=== PATIENT | female | born 1960 | race Caucasian/White ===

== ENCOUNTER 2021-11-01 10:04 | Emergency (ER) | payer OTHER, SELFPAY ==
[2021-11-01 10:05] VITALS: BP 169/78; PULSE 85; RESP 14; TEMP 36.2; O2SAT 98; BMI 28.8
[2021-11-01] MEDS: Ondansetron 4 MG/2 ML Vial IV (10:34)
[2021-11-01] MEDS: Ketorolac 30 MG/ML Syringe IV (10:34)
[2021-11-01] MEDS: Morphine 4 MG/ML Syringe IV (10:35)
[2021-11-01] MEDS: 0.9% Normal Saline 1,000 ML 250 ML IV (10:36)
[2021-11-01 10:46] LABS: Absolute Lymphocyte Count 2.47 X10^3/uL (0.83-4.51); Basophil# 0.05 X10^3/uL; Basophil% 0.5 % (0-1); Eosinophils% 1.1 % (0-5); Hematocrit 42.4 % (37-47); Hemoglobin 14.3 g/dL (12.0-15.0); Lymphocyte # 2.47 X10^3/ul (0.83-4.51); Lymphocyte % 26.8 % (19-41); Mean Corp Hgb Conc 33.7 g/dL (32-36); Mean Corpuscular Hgb 30.3 pg (27.0-32.0); Mean Corpuscular Volume 89.8 fL (81-99); Mean Platelet Vol. 9.4 fl (6.2-12.0); Monocyte# 0.58 X10^3/uL; Monocyte% 6.3 % (0-10); NRBC Flagged by Analyzer 0 % (0-5); Neutrophil # 5.97 X10^3/uL (2.7-7.7); Neutrophil % 64.9 % (47-70); Platelet Count 297 K/mm3 (150-450); RBC Distribution Width CV 12.5 % (11.6-14.6); RBC Distribution Width SD 41.4 fl (35.1-43.9); Red Blood Count 4.72 M/mm3 (4.2-5.4); White Blood Count 9.2 K/mm3 (4.4-11.0)
[2021-11-01 10:58] LABS: Anion Gap 12 (5-15); BUN 21 mg/dL (7-18); BUN/Creat Ratio 20.2 RATIO (10-20); Chloride 103 mmol/L (98-107); Creatinine, Serum 1.04 mg/dL (0.55-1.02); EST Glomerular Filtration Rate 57 mL/min (>60); Est Glom Filt Rate - Afr Amer 69 mL/min (>60); Estimated Creatinine Clearance 47.81 ml/min; Glucose 168 mg/dL (74-106); Potassium 3.5 mmol/L (3.5-5.1); Sodium Level 139 mmol/L (136-145)
[2021-11-01 12:08] LABS: Mucous, Urine 0 SEEN /hpf (<or=2+); Red Blood Cells-Urine 0 SEEN /hpf (0-5)
[2021-11-01 12:11] LABS: Color, Urine Yellow (Yellow); Glucose, Dipstick Normal (Normal); Ketone-Dipstick 15 mg/dl (Negative); Leukocyte Esterase-Dipstick 500 /ul (Negative); Nitrite-Dipstick Positive (Negative); Occult Blood-Urine 250 /ul (Negative); Protein-Dipstick 100 mg/dl (Negative); Urine Bilirubin Dipstick Negative (Negative); Urine Clarity Cloudy (Clear); Urine Urobilinogen 1 mg/dl (Normal)
[2021-11-01 12:12] LABS: Bacteria 4+ /hpf (None Seen); Squamous Epithelial Cells - UA 0-5 SEEN /hpf (5-10); White Blood Cells 10-25 SEEN /hpf (0-5)
[2021-11-01 12:18] VITALS: BP 133/74; PULSE 96; RESP 15; O2SAT 95
--- NOTE | 2021-11-01 12:41 | CT_ITS ---
STUDY: CT ABDOMEN AND PELVIS WITHOUT CONTRAST REASON FOR EXAM: Female, 61 years old. flank pain RADIATION DOSAGE (If Supplied By Facility): CTDIvol = ( 15.09 ) mGy, DLP = ( 745.35 ) mGycm TECHNIQUE: Transaxial images were obtained from the dome of the diaphragm to the symphysis pubis without oral contrast, and without intravenous contrast. Sagittal and coronal images were reconstructed. Individualized dose optimization techniques were used for this CT. COMPARISON: None. FINDINGS: The visualized lung bases are unremarkable. The visualized portions of the heart are within normal limits. There is decreased attenuation of the liver consistent with steatosis. Normal gallbladder and extrahepatic biliary system. Normal spleen. Normal pancreas. Normal bilateral adrenal glands. Slight right hydronephrosis with right perinephric stranding. No ureteral calculi. However, 5.4 mm calculus in the dependent portion of the urinary bladder and image 99 of series 2. Normal left kidney. Normal visualized stomach. Normal small intestine. Normal colon. The appendix is visualized and appears normal. There is diffuse atherosclerotic calcification of the abdominal aorta, without a demonstrated aneurysm. Normal inferior vena cava. Normal retroperitoneum. Normal urinary bladder. Normal abdominal wall. There are diffuse degenerative changes of the visualized lumbar spine. CT/Abdomen/Pelvis without Cont IMPRESSION: 5.4 mm urinary bladder calculus. Slight right hydronephrosis/perinephric stranding. No ureteral calculi. Electronically Signed: Beck Justice MD ([place]) at 13:09 EDT ,
[2021-11-01] MEDS: Ceftriaxone 1 GM/50 ML BAG IV (13:12)
--- NOTE | 2021-11-01 13:28 | EX.ED.DYSGE1 ---
HPI History of Present Illness Chief Complaint: Flank Pain Informant: patient Onset/Context/Timing Onset: Today Current Severity: Severe Maximum Severity: Severe Narrative Narrative: Patient presents secondary to severe right flank pain. She reports having some mild dysuria the past couple days. She took a dose of Cipro thinking she may have an infection. Today she developed rather severe pain in the right flank wrapping to the right groin. She does report some vomiting from the pain. No history of kidney stones. PFSH PFSH Medical History High cholesterol Hypertension Home Medications ciprofloxacin HCl [Cipro] 500 mg PO BID #20 tab 11/01/21 [Rx Last Taken Unknown] hydrocodone-acetaminophen 1 tab PO Q6H PRN 3 Days #10 tab 11/01/21 [Rx Last Taken Unknown] Allergy/AdvReac Type Severity Reaction Status Date / Time sulfamethoxazole AdvReac Vomiting Verified 11/01/21 10:07 [From Bactrim] trimethoprim [From Bactrim] AdvReac Vomiting Verified 11/01/21 10:07 Surgical History History of cholecystectomy Social History Smoking Status: Never smoker ROS ROS ED Constitutional Constitutional ED: Denies chills or fever(s) Eyes Eyes: Denies change in vision ENT ENT ED: Denies sore throat Cardiovascular Cardiovascular: Denies chest pain Respiratory/Chest Respiratory/Chest: Denies cough or dyspnea Gastrointestinal Gastrointestinal: Reports abdominal pain, nausea and vomiting Genitourinary Genitourinary ED: Reports dysuria Musculoskeletal Musculoskeletal: Reports back pain Integumentary Denies rash Neurologic Neurologic: Denies headache(s) or weakness Allergic/Immunologic Allergic/Immunologic ED: Denies urticaria EXAM Physical Exam Const Vital Signs: 11/01/21 10:05 11/01/21 12:18 11/01/21 14:39 Temperature 97.2 F L Temperature Source Temporal Pulse Rate 85 96 70 Respiratory Rate 14 15 Blood Pressure 169/78 H 133/74 H Blood Pressure Mean 108 93 Pulse Ox 98 95 97 Oxygen Delivery Method Room Air Room Air Positive well nourished and well developed General Appearance ED: well developed HEENT Reports moist mucous membranes Eyes PERRL and EOMs intact bilaterally Neck supple Chest Wall inspection of chest normal and palpation of chest normal Resp normal respiratory effort and clear to auscultation bilaterally Cardio regular rate and regular rhythm GI non-tender Palpation: soft Back/Spine General Back: CVA tenderness right Extremity normal to inspection Neuro oriented x3 Sensorium / Orientation: alert Psych mental status grossly normal Skin no rashes or lesions noted MDM MDM MDM Narrative Medical decision making narrative: Patient given morphine, Toradol, Zofran, IV fluids. Lab work, urinalysis, CT flank obtained. Lab Data Attestation: I reviewed the patient's lab results. Labs: Laboratory Results - last 24 hr 11/01/21 11/01/21 11/01/21 10:19 10:19 12:05 WBC 9.2 RBC 4.72 Hgb 14.3 Hct 42.4 MCV 89.8 MCH 30.3 MCHC 33.7 RDW Std Deviation 41.4 RDW Coeff of Roger 12.5 Plt Count 297 MPV 9.4 Immature Gran % (Auto) 0.400 Neut % (Auto) 64.9 Lymph % (Auto) 26.8 [place] % (Auto) 6.3 Eos % (Auto) 1.1 Baso % (Auto) 0.5 Absolute Neuts (auto) 6.0 Absolute Lymphs (auto) 2.47 Nucleated RBC % 0 Sodium 139 Potassium 3.5 Chloride 103 Carbon Dioxide 24.0 Anion Gap 12 BUN 21 H Creatinine 1.04 H Estim Creat Clear Calc 47.81 Est GFR (MDRD) Af Amer 69 Est GFR (MDRD) Non-Af 57 L BUN/Creatinine Ratio 20.2 H Glucose 168 H Calcium 10.0 Urine Color Yellow Urine Clarity Cloudy Urine pH 7.0 Ur Specific [place] 1.010 Urine Protein 100 H Urine Glucose (UA) Normal Urine Ketones 15 H Urine Occult Blood 250 H Urine Nitrite Positive H Urine Bilirubin Negative Urine Urobilinogen 1 H Ur Leukocyte Esterase 500 H Urine RBC 0 SEEN Urine WBC 10-25 SEEN Ur Squamous Epith Cells 0-5 SEEN Urine Bacteria 4+ Urine Mucus 0 SEEN Radiography Diagnostic Testing: Clinical Impression(s) from Imaging Studies Abdomen/Pelvis CT 11/01/21 12:41 IMPRESSION: 5.4 mm urinary bladder calculus. Slight right hydronephrosis/perinephric stranding. No ureteral calculi. Electronically Signed: Beck Justice MD ([place]) at 13:09 EDT Reading Location ID and State: / MD , Service support , Treatment and Re-Evaluation Narrative: Can we haveLab work unremarkable. Urinalysis reveals positive nitrites with 10-25 white cells and 4+ bacteria. A 5.4 mm calculus in the bladder. Slight right hydro was noted. On repeat evaluation patient sitting upright in bed smiling and feels much improved. Test results discussed with her. She did have significant right flank pain and has evidence of UTI. I am unsure if the flank pain was all secondary to the kidney stone of she may have a degree of pyelonephritis. In light of this she will be treated with a longer course of antibiotics. She will initially receive a dose of Rocephin here and urine will be sent for culture. Discharge Plan Triage Chief Complaint: Flank Pain ED Provider: Angela Scott Dx/Rx/DC Orders Clinical Impression: Pyelonephritis, Kidney stone Instructions: ED Kidney Stone, Passed, ED Pyelonephritis, Female (Adult) Prescriptions: New ciprofloxacin HCl [Cipro] 500 mg tablet 500 mg PO BID Qty: 20 RF: 0 hydrocodone-acetaminophen 5-325 mg tablet 1 tab PO Q6H PRN (Reason: pain) 3 Days Qty: 10 RF: 0 Primary Care Provider: ENMA SEN Referrals: ENMA SEN MD [Primary Care Provider] - Jun Wood MD [STAFF PHYSICIAN] - As Needed Disposition Disposition: Home, Self Care Discharge Date/Time: 11/01/21 14:47
[2021-11-01] MEDS: Ciprofloxacin 500 MG Tablet PO (13:50)
[2021-11-01 14:39] VITALS: PULSE 70; O2SAT 97
== END 2021-11-01 14:47 | disposition home or self-care (01) ==
PROVIDERS: Emergency Provider Emergency Medicine; PCP Internal Medicine; Visit Provider Emergency Medicine
DX: N13.2 Hydronephrosis with renal and ureteral calculous obstruction (principal); Z90.49 Acquired absence of other specified parts of digestive tract; N12 Tubulo-interstitial nephritis, not specified as acute or chronic
CPT/HCPCS: 74176; 80048; 81001; 85025; 87086; 87088; 96361; 96365; 96366; 96375; 99285; J7030; A4216; J2405